=== PATIENT | female | born 2000 | race Caucasian/White ===

== ENCOUNTER 2021-03-10 13:49 | Emergency (ER) | payer SELFPAY ==
[~2021-03-10] VITALS: Ht 157.5 cm; Wt 81.8 kg
[~2021-03-10 13:49] MED LIST: CLEOCIN HCL300 MG PO; LEXAPRO 10MG10 MG PO
[2021-03-10 14:12] VITALS: TEMP 98.2
[2021-03-10 14:51] LABS: STREP SCREEN NEGATIVE
[2021-03-10 16:00] VITALS: BP 125/73; PULSE 91
== END 2021-03-10 16:06 | disposition home or self-care (01) ==
LOC: COL.ER 13:49
PROVIDERS: Physician Assistant
DX: J03.90 Acute tonsillitis, unspecified (principal); Z20.822 Contact with and (suspected) exposure to COVID-19

== ENCOUNTER 2021-03-13 05:05 | Emergency (ER) | payer SELFPAY ==
[~2021-03-13] VITALS: Ht 157.5 cm; Wt 81.8 kg
[2021-03-13 05:07] VITALS: TEMP 99.2
[2021-03-13] MEDS ORDERED: CLEOCIN HCL300 MG PO (05:25)
[2021-03-13 05:34] VITALS: BP 139/97; PULSE 92
== END 2021-03-13 05:34 | disposition home or self-care (01) ==
LOC: COL.ER 05:05
DX: J03.90 Acute tonsillitis, unspecified (principal)
CPT/HCPCS: J1100